=== PATIENT | male | born 1995 | race African-American/Black ===

== ENCOUNTER 2019-09-20 03:53 | Emergency (ER) | payer OTHER ==
[~2019-09-20] VITALS: Ht 170.2 cm; Wt 173.7 kg
[2019-09-20 03:56] VITALS: BP 154/108
[2019-09-20 05:16] VITALS: BP 137/99
== END 2019-09-20 05:16 | disposition home or self-care (01) ==
LOC: MED 03:53
DX: H60.91 Unspecified otitis externa, right ear (principal); I10 Essential (primary) hypertension; F17.210 Nicotine dependence, cigarettes, uncomplicated
CPT/HCPCS: 99283

== ENCOUNTER 2023-01-16 10:07 | Emergency (ER) | payer OTHER ==
[~2023-01-16] VITALS: Ht 170.2 cm; Wt 169.2 kg
[2023-01-16 10:16] VITALS: BP 176/117
[2023-01-16] MEDS ORDERED: CEPH-588 PO (11:22)
[2023-01-16] MEDS ORDERED: IBUP-2213 PO (11:22)
--- NOTE | 2023-01-16 11:43 | NUR ---
gave pt bandaid to self apply
[2023-01-16 11:47] VITALS: BP 139/88
--- NOTE | 2023-01-16 11:47 | NUR ---
Patient discharged with v/s stable. Written and verbal after care instructions FOR SKIN ABSCESS given and explained. Patient alert, oriented and verbalized understanding of instructions. Ambulatory with steady gait. All questions addressed prior to discharge. ID band removed. Patient advised to follow up with PMD. Rx of KELFEX given. Opportunity to ask questions provided and answered.
== END 2023-01-16 11:47 | disposition home or self-care (01) ==
LOC: MED 10:07
DX: L02.415 Cutaneous abscess of right lower limb (principal); E11.9 Type 2 diabetes mellitus without complications; I10 Essential (primary) hypertension; F12.90 Cannabis use, unspecified, uncomplicated
CPT/HCPCS: 99283

== ENCOUNTER 2023-04-18 15:46 | Emergency (ER) | payer OTHER ==
[~2023-04-18 15:46] MED LIST: CEPH-588 PO; IBUP-2213 PO
== END 2023-04-18 16:29 | disposition left against medical advice (07) ==
LOC: MED 15:46
DX: K13.79 Other lesions of oral mucosa (principal); Z53.21 Procedure and treatment not carried out due to patient leaving prior to being seen by health care provider